=== PATIENT | male | born 1975 | race Two or more races ===

== ENCOUNTER 2024-10-11 18:22 | Inpatient (IN) | payer OTHER ==
[~2024-10-11] VITALS: Ht 177.8 cm; Wt 86.2 kg
[~2024-10-11 18:22] MED LIST: ATENOLOL100 MG
[2024-10-11] MEDS ORDERED: TOPROL XL100 M1 PO (18:58)
[2024-10-11] MEDS ORDERED: METFORMIN HCL500 M3 PO (18:59)
[2024-10-11] MEDS ORDERED: AVAPRO300 MG PO (18:59)
[2024-10-11] MEDS ORDERED: hydrALAZINE HCL 20 MG VIAL IV ONE (19:45)
[2024-10-11] MEDS ORDERED: hydrALAZINE HCL 20 MG VIAL ONE (19:53)
[2024-10-11 20:13] LABS: HEMOGLOBIN 14.5 g/dL (13-16.00); MEAN CELL VOLUME 82.8 fL (80.0-100.00); MEAN CORPUSCULAR HEMOGLOBIN 27.3 pg (27.00-32.0); MEAN CORPUSCULAR HGB CONC 32.9 g/dl (32.0-36.0); PLATELET COUNT 327 K/uL (150-450); RED BLOOD COUNT 5.31 M/uL (4.00-6.00); RED CELL DISTRIBUTION WIDTH 14.2 % (11.5-14.5)
[2024-10-11] MEDS ORDERED: KETOROLAC TROMETHAMINE 30 MG VIAL ONE (20:20)
[2024-10-11] MEDS ORDERED: KETOROLAC TROMETHAMINE 30 MG VIAL IV ONE (20:30)
[2024-10-11 21:02] LABS: ALBUMIN 3.8 gm/dL (3.4-5.0); BILIRUBIN TOTAL 0.33 mg/dL (0.3-1.2); CALCIUM 9.3 mg/dL (8.5-10.1); CREATININE SERUM 1.43 mg/dL (0.70-1.30); GFR 52.56; GLOBULINA 3.6 G/DL (2.4-3.5); POTASSIUM 4.22 mEq/L (3.5-5.1); TOTAL PROTEIN 7.4 gm/dL (6.4-8.2)
[2024-10-11] MEDS ORDERED: ORPHENADRINE CITRATE 30 MG/ML AMPUL IM ONE (22:00)
[2024-10-11] MEDS ORDERED: 0.9 % SODIUM CHLORIDE 1,000 ML IV SCH (22:00)
[2024-10-11] MEDS ORDERED: NIFEDIPINE 30 MG TAB.SA.OSM PO SCH (22:00)
[2024-10-11] MEDS ORDERED: ACETAMINOPHEN 500 MG GEL..CAP PO PRN (22:00)
[2024-10-11] MEDS ORDERED: DEXAMETHASONE SODIUM PHOSP/PF 10 MG/ML VIAL IV ONE (22:00)
[2024-10-11] MEDS ORDERED: hydrALAZINE HCL 20 MG VIAL IV PRN (22:15)
[2024-10-11] MEDS ORDERED: DEXTROSE 50 % IN WATER 0.5 G/ML DISP.SYRIN IV PRN (22:15)
[2024-10-11] MEDS ORDERED: INSULIN LISPRO 1,000 UNIT/10 ML UNITS SUBCUTANEO PRN (22:15)
[2024-10-11] MEDS ORDERED: ORPHENADRINE CITRATE 30 MG/ML AMPUL ONE (23:57)
[2024-10-11] MEDS ORDERED: DEXAMETHASONE SODIUM PHOSPHATE 4 MG/ML VIAL ONE (23:57)
[2024-10-12] MEDS ORDERED: DEXAMETHASONE SODIUM PHOSPHATE 4 MG/ML VIAL ONE (00:41)
[2024-10-12 00:59] VITALS: BP 177/90
[2024-10-12 01:04] LABS: MAGNESIUM 2.1 mg/dL (1.8-2.4); PHOSPHOROUS 2.6 mg/dL (2.5-4.9)
[2024-10-12 01:06] LABS: PROTHROMBIN TIME 10.9 SECONDS (9.0-11.5)
[2024-10-12 01:11] LABS: PH,URINE 6.5 (5.0-8.0); URINE APPEARANCE Clear; URINE BILIRRUBIN Negative (NEGATIVE); URINE BLOOD Negative; URINE COLOR Yellow; URINE KETONE Negative (NEGATIVE); URINE LEUKOCYTE Negative; URINE NITRATE Negative; URINE PROTEIN Negative (NEGATIVE); URINE UROBILINOGEN 0.2 E.U./dl
[2024-10-12 01:17] LABS: URINE BACTERIA 1.2 uL (0.0-1933); URINE EPITHELIAL CELLS 0.3 uL (0.0-38.8); URINE GLUCOSE 100 MG/DL (NEGATIVE); URINE RBC 1.1 uL (0.0-20.8); URINE WBC 0.9 uL (0.0-23.2)
[2024-10-12 03:30] VITALS: BP 174/74
[2024-10-12 06:38] LABS: CHOL HDL RATIO 5.5 (0-5.0)
[2024-10-12] MEDS ORDERED: FAMOTIDINE/PF 20 MG/2 ML VIAL ONE (08:36)
[2024-10-12 08:48] VITALS: BP 143/89
[2024-10-12] MEDS ORDERED: IRBESARTAN 300 MG TABLET PO SCH (09:00)
[2024-10-12] MEDS ORDERED: METOPROLOL SUCCINATE 100 MG TAB.SR.24H PO SCH (09:00)
[2024-10-12] MEDS ORDERED: ENOXAPARIN SODIUM 40 MG/0.4 ML SYRINGE SUBCUTANEO SCH (09:00)
[2024-10-12] MEDS ORDERED: FAMOTIDINE/PF 20 MG in 0.9 % SODIUM CHLORIDE 8 ML IV PUSH SCH (09:00)
[2024-10-12 17:14] VITALS: BP 183/109
[2024-10-12] MEDS ORDERED: KETOROLAC TROMETHAMINE 30 MG VIAL IV SCH (21:00)
[2024-10-13 00:28] VITALS: BP 138/87; O2SAT 96
[2024-10-13 07:54] LABS: HEMATOCRIT 46.2 % (39.0-48.0); HEMOGLOBIN 15.9 g/dL (13-16.00); MEAN CELL VOLUME 81.1 fL (80.0-100.00); MEAN CORPUSCULAR HGB CONC 34.5 g/dl (32.0-36.0); PLATELET COUNT 379 K/uL (150-450); RED CELL DISTRIBUTION WIDTH 14.4 % (11.5-14.5)
[2024-10-13 07:58] LABS: ALBUMIN 3.9 gm/dL (3.4-5.0); BILIRUBIN TOTAL 0.45 mg/dL (0.3-1.2); CALCIUM 9.3 mg/dL (8.5-10.1); CREATININE SERUM 1.26 mg/dL (0.70-1.30); GFR 60.83; GLOBULINA 3.8 G/DL (2.4-3.5); POTASSIUM 3.77 mEq/L (3.5-5.1); TOTAL PROTEIN 7.7 gm/dL (6.4-8.2)
[2024-10-13] MEDS ORDERED: FAMOTIDINE/PF 20 MG/2 ML VIAL ONE (08:16)
[2024-10-13 09:21] VITALS: BP 140/85
== END 2024-10-13 14:04 | disposition home or self-care (01) | DRG 305 ==
LOC: ER 18:23 → MEDI 22:03
PROVIDERS: General Practice; Internal Medicine; ADMIT Student in an Organized Health Care Education/Training Program; ATTEND Student in an Organized Health Care Education/Training Program
PROC: BT4JZZZ Ultrasonography of Kidneys and Bladder (ICD-10-PCS; principal; 2024-10-11)
PROC: B24BYZZ Ultrasonography of Heart with Aorta using Other Contrast (ICD-10-PCS; 2024-10-11)
DX: I16.9 Hypertensive crisis, unspecified (principal); N17.9 Acute kidney failure, unspecified; M62.82 Rhabdomyolysis

== ENCOUNTER → 2025-03-02 09:11 | Outpatient (CLI) | payer OTHER ==
[~2025-03-02 09:11] MED LIST changes: +AVAPRO300 MG PO; +METFORMIN HCL500 M3 PO; +TOPROL XL100 M1 PO
[2025-03-02 11:50] LABS: BASO % 1.4 % (0.1-1.2); EOS # 0.18 (0.04-0.54); EOS % 4.2 % (0.7-7.0); LYMPH # 1.63 (1.18-3.74); LYMPH % 37.7 % (19.3-53.1); MEAN PLATELET VOLUME 9.70 fl (9.4-12.4); MONO # 0.40 (0.24-0.82); MONO % 9.3 % (4.7-12.5); NEUT # 2.03 (1.56-6.13); NEUT % 46.9 % (34.0-71.1); RED CELL DISTRIBUTION WIDTH 12.9 % (11.6-14.4)
[2025-03-02 11:57] LABS: URINE APPEARANCE Clear; URINE BILIRRUBIN Negative (NEGATIVE); URINE BLOOD Negative; URINE COLOR Yellow; URINE GLUCOSE Negative (NEGATIVE); URINE KETONE Trace (NEGATIVE); URINE LEUKOCYTE Negative; URINE NITRATE Negative; URINE PROTEIN Negative (NEGATIVE); URINE UROBILINOGEN 1.0 E.U./dl
[2025-03-02 12:01] LABS: URINE BACTERIA 10.7 uL (0.0-1933); URINE EPITHELIAL CELLS 1.8 uL (0.0-38.8); URINE RBC 3.3 uL (0.0-20.8)
[2025-03-02 12:13] LABS: URINE CAST 0.00 uL (0.0-1.40); URINE WBC 1.3 uL (0.0-23.2)
[2025-03-02 13:32] LABS: ALT/SGPT 25.0 U/L (12-78); AST/SGOT 13.0 U/L (15-37); BILIRUBIN TOTAL 0.51 mg/dL (0.3-1.2); BUN CREA RATIO 10.0 (7.0-25.0); CHOL HDL RATIO 4.4 (0-5.0); CREATININE SERUM 1.36 mg/dL (0.70-1.30); FREE TRIODOTIRONINE 2.8 pg/ml (2.18-3.98); GFR 55.47; GLOBULINA 3.5 G/DL (2.4-3.5); GLUCOSE FASTING 122.0 mg/dL (65-100); HDL 47.0 mg/dl (40-60); LDL 136.0 mg/dl (0-130); OSMOLALITY SERUM 285.0 MOSM/KG (275-295); PROSTATIC SPECIFIC ANTIGEN 0.56 NG/ML (0.010-4.00); T4 FREE 1.02 NG/ML (0.76-1.46); TSH 1.82 uIU/mL (0.358-3.74); VLDL 23.0 (0-39)
[2025-03-03 11:42] LABS: VITAMIN D3 25 HYDROXY 40.95 ng/ml (30-120)
== END | disposition home or self-care (01) ==
LOC: LAB 09:11
DX: E79.0 Hyperuricemia without signs of inflammatory arthritis and tophaceous disease (principal); D51.9 Vitamin B12 deficiency anemia, unspecified; N39.0 Urinary tract infection, site not specified; E07.89 Other specified disorders of thyroid; I11.9 Hypertensive heart disease without heart failure; D56.5 Hemoglobin E-beta thalassemia; E78.49 Other hyperlipidemia; E55.9 Vitamin D deficiency, unspecified; R86.1 Abnormal level of hormones in specimens from male genital organs; Z12.11 Encounter for screening for malignant neoplasm of colon; F31.9 Bipolar disorder, unspecified; E06.3 Autoimmune thyroiditis; R94.6 Abnormal results of thyroid function studies

== ENCOUNTER 2025-04-20 09:28 | Outpatient (CLI) | payer OTHER ==
[2025-04-20 11:13] LABS: BASO % 1.3 % (0.1-1.2); EOS # 0.09 (0.04-0.54); EOS % 2.3 % (0.7-7.0); LYMPH # 1.28 (1.18-3.74); LYMPH % 32.5 % (19.3-53.1); MEAN PLATELET VOLUME 9.00 fl (9.4-12.4); MONO # 0.27 (0.24-0.82); MONO % 6.9 % (4.7-12.5); NEUT # 2.24 (1.56-6.13); NEUT % 56.7 % (34.0-71.1); RED CELL DISTRIBUTION WIDTH 13.0 % (11.6-14.4)
[2025-04-20 11:51] LABS: PROSTATIC SPECIFIC ANTIGEN 0.722 NG/ML (0.010-4.00); TSH 1.27 uIU/mL (0.358-3.74)
== END 2025-04-20 09:32 | disposition home or self-care (01) ==
LOC: LAB 09:28
DX: E03.9 Hypothyroidism, unspecified (principal); E16.2 Hypoglycemia, unspecified; E78.5 Hyperlipidemia, unspecified; E55.9 Vitamin D deficiency, unspecified; Z12.11 Encounter for screening for malignant neoplasm of colon; N91.1 Secondary amenorrhea; E22.1 Hyperprolactinemia